=== PATIENT | male | born 1980 | race Two or more races ===

== ENCOUNTER 2017-11-30 17:48 | Inpatient (IN) | payer OTHER ==
[~2017-11-30] VITALS: Ht 170.2 cm; Wt 61.9 kg
[~2017-11-30 17:48] MED LIST: MUCINEX D ER T1 EACH PO; NAPROSYN500 MG PO; PREDNISONE20 MG PO
[2017-11-30 18:30] LABS: BASOPHIL (%) 0.5 % (0-1); BASOPHIL COUNT 0.1 K/uL (0-0.1); EOSINOPHIL (%) 0.5 % (0-5); EOSINOPHIL COUNT 0.1 K/uL (0-0.3); HEMATOCRIT 47.3 % (38.0-50.0); HEMOGLOBIN 16.5 G/DL (12.5-16.6); IMMATURE GRANULOCYTE (%) 0.3 % (0.0-0.7); LYMPHOCYTE (%) 22.2 % (15-42); LYMPHOCYTE COUNT 2.3 K/uL (1.0-2.8); MCH 30.4 PG (29.0-34.0); MCHC 34.9 G/DL (30.0-36.0); MCV 87.3 FL (86-99); MONOCYTE (%) 5.1 % (3-12); MONOCYTE COUNT 0.5 K/uL (0-0.8); NEUTROPHIL (%) 71.4 % (45-76); NEUTROPHIL COUNT 7.5 K/uL (1.8-6.4); PLATELET COUNT 231 K/uL (156-360); RBC DIS.WIDTH-SD 41.3 % (39-53); RED BLOOD COUNT 5.42 M/uL (4.00-5.50); WHITE BLOOD COUNT 10.5 K/uL (4.1-10.2)
[2017-11-30 19:04] LABS: ALBUMIN 4.4 G/DL (3.2-4.8); CHLORIDE 107 MEQ/L (99-109); SODIUM 138 MEQ/L (136-147); TOTAL BILIRUBIN 0.7 MG/DL (0.0-1.0)
[2017-11-30 19:10] LABS: ACETAMINOPHEN (TYLENOL) < 10 MCG/ML (10-30); ALKALINE PHOSPHATASE 71 IU/L (3-129); ALT (GPT) 18 IU/L (3-49); AST (GOT) 21 IU/L (2-34); GFR ESTIMATE (CALCULATED) > 59 mL/min/ (58.99-99999); GLUCOSE 111 mg/dL (70-99); SALICYLATE < 3.0 MG/DL (15-30); SERUM ETHYL ALCOHOL < 10 mg/dL; TOTAL PROTEIN 7.1 G/DL (6.4-8.3); UREA NITROGEN (BUN) 13 mg/dL (9-23)
[2017-11-30 21:29] VITALS: BP 117/69
[2017-12-01 09:35] VITALS: BP 148/112
[2017-12-01 15:53] VITALS: BP 122/75
[2017-12-02 07:33] VITALS: BP 125/74
[2017-12-02 10:00] VITALS: BP 118/76
[2017-12-02 15:10] VITALS: BP 122/77
[2017-12-03 08:08] VITALS: BP 119/70
[2017-12-03] MEDS ORDERED: FLUOXETINE HCL10 MG PO (09:08)
== END 2017-12-03 11:33 | disposition home or self-care (01) | DRG 881 ==
LOC: EME 17:48 → EDOF 19:49 → 1WEST 19:49 → ENRESERV 21:19 → 1WEST 12-03 11:33
PROVIDERS: Emergency Medicine
DX: F34.1 Dysthymic disorder (principal); F41.1 Generalized anxiety disorder; F42.9 Obsessive-compulsive disorder, unspecified; R45.850 Homicidal ideations; T40.2X2A Poisoning by other opioids, intentional self-harm, initial encounter; T51.0X2A Toxic effect of ethanol, intentional self-harm, initial encounter; R00.0 Tachycardia, unspecified; R00.2 Palpitations; R51 Headache; R11.2 Nausea with vomiting, unspecified; F17.210 Nicotine dependence, cigarettes, uncomplicated; Z87.442 Personal history of urinary calculi; Z81.8 Family history of other mental and behavioral disorders
CPT/HCPCS: 80053; 81003; 85025; 90839; 93005; 99281; 99285; G0480; J2405; J7030